=== PATIENT | male | born 1980 | race Caucasian/White ===

== ENCOUNTER 2016-08-10 08:39 | Emergency (ER) | payer OTHER | END 2016-08-10 10:32 | disposition home or self-care (01) | DX: S83.412A Sprain of medial collateral ligament of left knee, initial encounter (principal); W03.XXXA Other fall on same level due to collision with another person, initial encounter; Y93.67 Activity, basketball; Y92.310 Basketball court as the place of occurrence of the external cause ==

== ENCOUNTER 2023-02-11 15:56 | Emergency (ER) | payer OTHER ==
--- NOTE | 2023-02-11 16:18 | ED Physician Documentation ---
PD HPI LOWER EXT INJURY - Stated complaint Stated Complaint: RT FOOT PX - Chief complaint Chief Complaint: Ext Problem - History obtained from History obtained from: Patient - Additional information Additional information: He "rolled his ankle" and PT this morning with moderate pain there. Is able to walk and bear weight but using a walking stick. No other injuries. PD PAST MEDICAL HISTORY - Past Surgical History Past Surgical History: No - Present Medications Home Medications: Ambulatory Orders Medication Instructions Recorded Confirmed HYDROcod/ACETAM 5/325 [[place] 5/325] 1 - 2 tab PO Q6H PRN #15 tablet 02/11/23 - Allergies Allergies/Adverse Reactions: Allergies Allergy/AdvReac Type Severity Reaction Status Date / Time No Known Drug Allergies Allergy Verified 08/10/16 08:42 - Social History Does the pt smoke?: No Smoking Status: Never smoker Does the pt drink ETOH?: Yes Does the pt have substance abuse?: No - Immunizations Immunizations are current?: Yes PD ED PE NORMAL - Vitals Vital signs reviewed: Yes - General General: Alert and oriented X 3, No acute distress - Extremities Extremities: Other (The malleoli are nontender in the right ankle but he is focally tender over the anterior talus. Metatarsals are nontender. There is a lot of swelling laterally though.) - Neuro Neuro: Alert and oriented X 3, Normal speech Results - Vitals Vitals: Vital Signs - 24 hr 02/11/23 16:08 Temperature 37.2 C Heart Rate 100 Respiratory 18 Rate Blood Pressure 114/82 H O2 Saturation 96 Oxygen O2 Source Room air - Rads (name of study) Three-view x-ray right ankle demonstrates anterior talus fracture. This does correspond with tenderness. Relevant Findings:: Final report received, EMP independent interpretation of test Procedures - Splint (location) - Minor Right ankle Splint applied by: Physician Type of splint: Fiberglass, Short leg, Posterior Other: Patient tolerated well, No complications, Neurovascular intact, Crutches provided Departure - Departure Disposition: 01 Home, Self Care Clinical Impression: Fracture closed, talus Qualifiers: Encounter type: initial encounter Talus location: body Fracture alignment: nondisplaced Laterality: right Qualified Code(s): S92.124A - Nondisplaced fracture of body of right talus, initial encounter for closed fracture Condition: Good Record reviewed to determine appropriate education?: Yes Instructions: ED Fx Foot Prescriptions: HYDROcod/ACETAM 5/325 [[place] 5/325] 1 - 2 tab PO Q6H PRN #15 tablet PRN Reason: Pain Comments: You were seen today for an ankle injury and you do have a small fracture of your talus.. You should keep the splint on and dry and follow-[place] call [facility] on Tuesday to arrange. Take the CD with the x-ray on it to that appointment. Do not walk or bear weight on it until advised it is safe to do so by the orthopedist, and keep the splint on and dry as well. You can elevate for pain. If pain is mild you can also take Tylenol and/or ibuprofen. I sent a stronger painkiller to [facility] in [place]. I am prescribing a short course of narcotic pain medication for you. These are potentially dangerous and addictive medications that should be used carefully. These medications may constipate you. Take an xlkd-ove-ipzfhuq stool softener (docusate) twice daily with plenty of water while taking these medications. If you go 24 hours without a bowel movement, take mupx-rjf-dwqcarv miralax, per package instructions. Do not drink or drive while taking these medications. If you received narcotic or sedating medications while in the emergency department, do not drive for 24 hours. Store this medication in a safe, secure place and out of reach of children. It is a violation of federal law to give or sell this medication to another person or to use in a manner other than prescribed. The ED will not refill narcotic prescriptions, including prescriptions lost or stolen. To dispose of unwanted medications: 1. [facility] provides a drop box for medication in pill form only (no liquids) 8:00 am to 4:30 p.m. Tuesday-Tuesday in the lobby of the [facility] [place], [address] [place] [address]. Empty pills into ziplock bag before disposal. Call [phone] for information. 2.[employer] is a free service available to all [facility] residents. Go to [email or web address] Note that many narcotic pain relievers also contain Tylenol/acetaminophen. Please ensure that your total dose of acetaminophen from all sources does not exceed 3 g (3000 mg) per day. Forms: PCP List
--- NOTE | 2023-02-11 17:08 | XRAY Report ---
PROCEDURE: Ankle 3 View RT INDICATIONS: ankle inj TECHNIQUE: 3 views of the ankle were acquired. COMPARISON: None. FINDINGS: Bones: Age-indeterminate fracture along the dorsal, anterior talus. Soft tissues: No tibiotalar joint effusion. Achilles tendon appears normal. IMPRESSION: Age-indeterminate fracture along the dorsal, anterior talus. Correlate with point tenderness. Reviewed by: Tayo Day on 02/11/2023 5:07 PM PDT Approved by: Tayo Day on 02/11/2023 5:07 PM PDT Station ID: [id number]
[2023-02-11 18:21] VITALS: BP 112/80; O2SAT 98
== END 2023-02-11 18:20 | disposition home or self-care (01) ==
LOC: ED 15:56
DX: S92.124A Nondisplaced fracture of body of right talus, initial encounter for closed fracture (principal); X50.1XXA Overexertion from prolonged static or awkward postures, initial encounter
CPT/HCPCS: 29515; 99284

== ENCOUNTER 2023-04-06 12:58 | Outpatient (CLI) | payer OTHER ==
--- NOTE | 2023-04-06 13:32 | Sleep Patient Instructions ---
Sleep Center Visit Summary - Patient Visit Information Reason for Visit: Initial consult for evaluation of sleep disordered breathing and other sleep issues. - Patient Instructions Instructions Attached: Sleep Study, Sleep Study Home Monitor Additional Instructions: You will be completing a sleep study, either an in-lab polysomnography (PSG) or home sleep study (HST). You will follow-up in the sleep care office after the sleep study is completed to hear the results and talk about therapy, if needed. You will be called by our office staff to schedule this appointment, but you may contact us with any questions. - Clinic Information Contact: [facility] [address] [place] [phone] [email or web address] T: [phone]
--- NOTE | 2023-04-06 13:38 | SLEEP CARE CONSULTATION ---
Information from patient questionnaire entered by Brianna Jaffe. I have reviewed and concur with the information entered by Brianna Jaffe. This document represents the service I personally performed and the decisions made by me, Crystal Salomon ARNP. History of Present Illness Service Date and Time: 04/06/2023 1258 Reason for Visit: New patient Chief Complaint: reports: Unrefreshed sleep, Snoring, Frequent awakenings at night Date of Onset: FEW YRS Usual bedtime: 2200 Time it takes to fall asleep: A WHILE Snores at night: Yes Observed to quit breathing while asleep: Yes Sleeps alone due to snoring: No Number of times waking at night: 2 Reasons for waking at night: reports: Other (UNKNOWN). denies: Choking, Gasping for air Toss, Turn, or Twitch while sleeping: Yes Recalls having dreams: No (rarity) Usually gets out of bed at: 9337-3010 Feels refreshed in the morning: No Morning headache: No Sleepy or fatigued during the day: Yes (no unintentional naps) Ever fallen asleep while driving: No Takes day naps: No Dreams during day naps: No Prior sleep studies: No Additional HPI information: I had the pleasure of seeing FRANK DAVIS today regarding the possibility of him having a sleep disorder. His current complaints are unrefreshed sleep, snoring and frequent night awakenings. 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 He says he felt he would need help to calm his mind to be able to fall asleep because of his work schedule changes. 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 He states sometimes he can fall right to sleep but other times his mind racing or restlessness prevents being able to sleep for an hour or so. He says he will wake up randomly for unknown reasons. He will toss/turn for long time, hour or two, and then eventually fall asleep. His has told him that he snores loudly. She will nudge him to turn over at night. He says he rarely dreams and does not wake up feeling rested. He can be tired during the day but does not take naps. - Parasomnia Symptoms Ever been unable to move upon waking from sleep: No Walks in sleep: No Talks in sleep: Yes Ever acted out dreams in sleep: No Ever felt weak in the knees when startled or emotional: No Bothered by creepy, crawly, restless sensations in legs: No Problems with memory or concentration: No Subjective Initial Arnett Sleepiness Scale score: 6 (04/06/23) Past Medical History Past Medical History: reports: Other (PT after foot injury; no significant medical history) Social History The patient's occupation is a [employer]. Patient is and lives in [place]. Have you smoked in the past 12 months: No Alcohol use: No Caffeine use: Yes Caffeine amount and frequency: 6 12OZ COFFEE DAILY Family History Family history of sleep disordered breathing: No Allergies and Home Medications Known drug allergies: No Drug allergies reviewed: Yes Home medication list reviewed: Yes Allergy and home medication list: Allergies No Known Drug Allergies Allergy (Verified 04/06/23 09:07) Home Medications Medication Instructions Recorded Confirmed Last Taken Type Multivit,Calc,Min/FA/K1/Lycop See Rx Instructions .ROUTE .COMPLEX 04/06/23 04/06/23 Unknown History [One-A-Day Men's Complete Tab] Naproxen [Naprosyn] See Rx Instructions .ROUTE .COMPLEX 04/06/23 04/06/23 Unknown History Review of Systems Cardiovascular: denies: high blood pressure Gastrointestinal: denies: heartburn Neurological: denies: headaches Psychiatric: denies: anxiety, depression Ear/Nose/Throat: denies: tonsillectomy Physical Exam Vital signs obtained and entered by: BRIANNA Griffith MA Blood Pressure: 120/86 (LEFT ARM) Cuff size: regular Heart Rate: 79 O2 Saturation: 99 Height: 5 ft 10 in Weight: 170 lb Body Mass Index: 24.3 BMI Classification: Normal Neck circumference: 15 Mouth and throat: narrow oropharynx Soft palate: long Hard palate: normal Uvula: normal, edematous Uvula visualization: 0% Mallampati Class IV Tongue: enlarged in size with teeth fernando on lateral edges Tonsils: 1+ Neck: normal w/o lymphadenopathy or thyromegaly Heart: regular rate and rhythm Lungs: clear bilaterally Impression and Plan 1. Suspected Obstructive Sleep Apnea-Hypopnea Syndrome, as suggested by a history of loud and irregular snoring, frequent awakening during the night and unrefreshed sleep. Narrow oropharynx and obesity are common predisposing factors for obstructive sleep apnea-hypopnea syndrome. I recommend proceeding to polysomnography to confirm the diagnosis and to assess severity. If the patient has significant sleep disordered breathing, a manual CPAP titration study will also be performed to find the optimal treatment pressure. I informed the patient of what the sleep studies involve and after some discussion, obtained agreement to proceed. The pathophysiology of obstructive sleep apnea-hypopnea syndrome was discussed with the patient and health risks of cardiovascular and cerebrovascular disease if not treated. Risks of drowsy driving discussed in detail and patient advised to avoid long distance driving and to stick puller at the first sign of drowsiness. Patient agreed to plan. * Schedule polysomnography. * Avoid long distance driving or driving when feeling sleepy. * Avoid alcohol, sedative and muscle relaxant around bedtime. * Review instructions provided by trained office staff on how to prepare for the sleep study. * Return for follow-up after sleep study completed. Counseling Topics: Weight loss health impact Plan: PSG Visit Type: In Office Time Spent with Patient (minutes): 30 Provider Statement: I spent 100% of the Face to Face Visit with the patient with greater than 50% spent counseling the patient and coordination of care.
[2023-04-06 13:41] VITALS: BP 120/86; O2SAT 99
== END 2023-04-06 12:59 | disposition home or self-care (01) ==
LOC: SC 12:58
PROVIDERS: ATTEND Nurse Practitioner Family
DX: R06.83 Snoring (principal); G47.8 Other sleep disorders; R53.83 Other fatigue
CPT/HCPCS: 99203; 99212

== ENCOUNTER 2023-04-27 08:24 | Outpatient (CLI) | payer OTHER | END 2023-04-27 08:25 | disposition home or self-care (01) | LOC: SC 08:24 | PROVIDERS: ATTEND Nurse Practitioner Family | DX: R06.83 Snoring (principal); G47.8 Other sleep disorders; R53.83 Other fatigue | CPT/HCPCS: 95806 ==

== ENCOUNTER 2023-05-03 14:28 | Outpatient (CLI) | payer OTHER ==
--- NOTE | 2023-05-03 14:18 | SLEEP CARE CONSULTATION ---
Information from patient questionnaire entered by Brianna Jaffe. I have reviewed and concur with the information entered by Brianna Jaffe. This document represents the service I personally performed and the decisions made by , Crystal Salomon ARNP. History of Present Illness Service Date and Time: 05/03/2023 1400 Initial Sanborn Sleepiness Scale score: 6 (04/06/23) Current Sanborn Sleepiness Scale score: 3 (05/03/23) Additional HPI information: FRANK DAVIS returns via telephone visit for follow up and results of the recently performed home sleep study. The patient was informed of the following findings: No significant sleep disordered breathing with an average AHI of 1.9 and ramana oxygen saturation of 91%. I explained the pathophysiology behind obstructive sleep apnea. Patient does not have sleep apnea and was advised how weight gain could increase the risk of developing sleep apnea in the future. Patient has mild snoring. Snoring can be reduced by weight loss. Snoring can also be treated with an oral appliance from a dentist. Advised to check insurance coverage. In addition, an ENT evaluation can be do to see if other treatment is indicated. Patient does not drink alcohol. Patient was cautioned about risks of drowsy driving until sleepiness symptoms resolve. Patient denies drowsy driving. Sleep Study - Results Type of Sleep Study: Home sleep study (COMPLETED 04/27/23) Prior sleep studies: No Polysomnography/Home Sleep Study results: Physician Impression: The quality of the study is good. The length of the study is adequate (> 240 minutes). Please also see the tabulated and graphic data. 1. No significant sleep disordered breathing, with an AHI of 1.9/hr and ramana SaO2 of 91%. During the study, the patient had 9 apneas (9 obstructive, 0 central, 0 mixed) and 6 hy popneas. The longest episode lasted 92.5 seconds. The patient slept adequately in supine position (supine AHI was 3.0 and non-supine, 0.54). Allergies and Home Medications Known drug allergies: No Drug allergies reviewed: Yes Home medication list reviewed: Yes (no changes) Allergy and home medication list: Allergies No Known Drug Allergies Allergy (Verified 05/03/23 12:32) Review of Systems Review of systems same as previous: Yes (NO CHANGE) Physical Exam Vital signs obtained and entered by: BRIANNA Griffith MA Height: 5 ft 10 in (PER PT) Weight: 165 lb (PER PT) Body Mass Index: 23.6 BMI Classification: Normal Impression and Plan 1. Snoring but no significant sleep disordered breathing. Patient advised that often weight loss will reduce snoring as well as apnea risk. An oral appliance can also be used for snoring. This would require a dental consultation. Patient cautioned not to use other online appliances as can cause bite issues. Patient is advised to check if insurance will cover. An ENT consult can also be helpful to determine if any other treatment is an option. * Attempt to lose weight * Avoid alcohol consumption near bedtime * The patient is cautioned about driving until sleepiness is completely resolved. * Return as needed for follow up. Counseling Topics: Weight control Visit Type: Telehealth Phone Video Type: Chyna Patient Location: Home Location of Provider: Office Patient agrees and consents to this telehealth visit type: Yes Patient agrees to have their insurance billed: Yes Time Spent with Patient (minutes): 10 Provider Statement: I spent 100% of the Telehealth Phone Call with the patient with greater than 50% spent counseling the patient and coordination of care.
== END 2023-05-03 14:29 | disposition home or self-care (01) ==
LOC: SC 14:28
PROVIDERS: ATTEND Nurse Practitioner Family
DX: R06.83 Snoring (principal)
CPT/HCPCS: 99441